=== PATIENT | female | born 1990 | race Caucasian/White ===

== ENCOUNTER 2016-08-02 17:12 | Emergency (ER) | payer OTHER ==
[~2016-08-02] VITALS: Ht 160 cm; Wt 123.8 kg
[~2016-08-02 17:12] MED LIST: BACTRIM 400 MG-1 TAB PO; BACTRIM DS 8001 TA1 PO; BACTROBAN2% TP; CARAFATE1 G1 PO; CIPROFLOXACIN500 MG PO; DICLOFENAC POTA50 MG PO; HYDROCODONE BIT1 T11 PO; IBU800 MG PO; LEVOFLOXACIN500 MG PO; MACROBID100 M1 PO; MOTRIN800 MG PO; Motrin,Rufen800 MG PO; OMEPRAZOLE20 MG PO; PERCOCET 325 MG1 TA6 PO; PRENATAL1 TA1 PO; PYRIDIUM200 M1 PO; TYLENOL325 M2 PO; ZOFRAN4 MG PO
[2016-08-02] MEDS ORDERED: CYCLOBENZAPRINE10 MG PO (19:05)
[2016-08-02] MEDS ORDERED: Motrin,Rufen800 MG PO (19:05)
== END 2016-08-02 19:10 | disposition home or self-care (01) ==
LOC: ED 17:12
DX: S13.9XXA Sprain of joints and ligaments of unspecified parts of neck, initial encounter (principal); F17.200 Nicotine dependence, unspecified, uncomplicated; Z91.018 Allergy to other foods; V43.62XA Car passenger injured in collision with other type car in traffic accident, initial encounter; Y93.89 Activity, other specified; Y92.413 State road as the place of occurrence of the external cause; Y99.8 Other external cause status

== ENCOUNTER 2017-08-14 19:24 | Emergency (ER) | payer OTHER ==
[~2017-08-14] VITALS: Ht 154.9 cm; Wt 112.9 kg
[~2017-08-14 19:24] MED LIST changes: +CYCLOBENZAPRINE10 MG PO
[2017-08-14] MEDS ORDERED: TAGAMET HB200 M1 PO (21:17)
== END 2017-08-14 21:23 | disposition home or self-care (01) ==
LOC: ED 19:24
DX: L50.8 Other urticaria (principal); F17.200 Nicotine dependence, unspecified, uncomplicated; Z98.890 Other specified postprocedural states; Z91.018 Allergy to other foods

== ENCOUNTER 2018-08-11 08:55 | Emergency (ER) | payer OTHER ==
[~2018-08-11] VITALS: Ht 154.9 cm; Wt 117.0 kg
[~2018-08-11 08:55] MED LIST changes: +TAGAMET HB200 M1 PO
[2018-08-11] MEDS ORDERED: VISTARIL25 MG PO (09:20)
[2018-08-11] MEDS ORDERED: PREDNISONE20 M1 PO (09:20)
== END 2018-08-11 09:52 | disposition home or self-care (01) ==
LOC: ED 08:55
DX: L50.8 Other urticaria (principal); E11.9 Type 2 diabetes mellitus without complications; F17.200 Nicotine dependence, unspecified, uncomplicated; Z91.018 Allergy to other foods; Z79.899 Other long term (current) drug therapy

== ENCOUNTER → 2018-12-11 | Outpatient (CLI) | payer OTHER ==
[~2018-12-11] MED LIST changes: +PREDNISONE20 M1 PO; +VISTARIL25 MG PO
[2018-12-11 17:22] LABS: BASO # 0.1 10*3/uL (0.0-0.1); BASO % 0.7 % (0.0-1.0); EOS # 0.2 10*3/uL (0.0-0.4); EOS % 1.7 % (1.0-4.0); HEMOGLOBIN 13.5 g/dl (12.0-16.0); LYMPH # 2.7 10*3/uL (1.3-4.4); LYMPH % 21.4 % (27.0-41.0); MEAN CELL VOLUME 93.4 fl (81.0-99.0); MEAN CORPUSCULAR HGB 30.8 pg (27.0-31.0); MEAN CORPUSCULAR HGB CONC 32.9 g/dl (33.0-37.0); MEAN PLATELET VOLUME 11.8 fl (9.6-12.3); MONO # 0.6 10*3/uL (0.1-1.0); MONO % 4.5 % (3.0-9.0); NEUT # 9.1 10*3/uL (2.3-7.9); NEUT % 71.4 % (47.0-73.0); PLATELET COUNT AUTOMATED 286 10*3/uL (130-400); RED BLOOD COUNT 4.39 10*6/uL (4.10-5.10); RED CELL DISTRI WIDTH 12.9 % (0-14.5); WHITE BLOOD COUNT 12.8 10*3/uL (4.8-10.8)
[2018-12-11 17:36] LABS: ALBUMIN 3.5 gm/dl (3.1-4.5); ALKALINE PHOSPHATASE 87 U/L (45-117); BUN 11 mg/dl (7-24); CHLORIDE 108 mmol/L (98-107); CHOLESTEROL 163 mg/dL (<200); CREATININE 0.73 mg/dL (0.55-1.02); HDL CHOLESTEROL 33 mg/dl (40-60); LDL CHOLESTEROL 79 mg/dL (9-159); SGOT/AST 42 IU/L (3-35); SGPT/ALT 76 U/L (12-78); SODIUM 140 mmol/L (136-145); TOTAL PROTEIN 7.5 gm/dL (6.4-8.2); TRIGLYCERIDES 254 mg/dl (<150); VLDL CHOLESTEROL 51 mg/dL (6-40)
[2018-12-11 17:38] LABS: FREE T4 1.07 ng/dl (0.76-1.46)
[2018-12-11 17:54] LABS: VITAMIN D, 25-HYDROXY 42.8 ng/mL (30-100)
== END | disposition home or self-care (01) ==
LOC: LAB 16:56
PROVIDERS: Internal Medicine
DX: Z13.1 Encounter for screening for diabetes mellitus (principal); Z13.21 Encounter for screening for nutritional disorder; Z13.220 Encounter for screening for lipoid disorders; Z00.00 Encounter for general adult medical examination without abnormal findings; E11.9 Type 2 diabetes mellitus without complications

== ENCOUNTER → 2021-05-10 | Outpatient (CLI) | payer OTHER | END | disposition home or self-care (01) | LOC: US 13:00 | PROVIDERS: ATTEND Nurse Practitioner Women's Health | DX: O09.91 Supervision of high risk pregnancy, unspecified, first trimester (principal); Z3A.11 11 weeks gestation of pregnancy ==

== ENCOUNTER 2021-06-15 19:41 | Emergency (ER) | payer OTHER ==
[~2021-06-15] VITALS: Ht 152.4 cm; Wt 111.1 kg
[2021-06-15] MEDS ORDERED: ASPIRIN FOR CHI81 MG PO (19:58)
[2021-06-15] MEDS ORDERED: INSULIN AS100 UNIT/3 SQ (19:59)
[2021-06-15] MEDS ORDERED: LANTUS SOL100 UNIT/1 SC (19:59)
[2021-06-15 20:19] LABS: BILIRUBIN Negative (Negative); BLOOD 2+ (Negative); CLARITY Cloudy (Clear); COLOR Yellow (Yellow); GLUCOSE Negative (Negative); KETONE 1+ (Negative); LEUKO ESTERASE 2+ (Negative); NITRITE Negative (Negative)
[2021-06-15 20:31] LABS: EPITHELIAL CELLS 16-20; RBC 21-30 rbc/hpf (0-2); WBC 21-30 wbc/hpf (0-5)
[2021-06-15 20:37] LABS: HEMATOCRIT 35.4 % (37.0-47.0); MEAN CELL VOLUME 89.8 fl (81.0-99.0); MEAN CORPUSCULAR HGB 30.2 pg (27.0-31.0); MEAN CORPUSCULAR HGB CONC 33.6 g/dl (33.0-37.0); MEAN PLATELET VOLUME 11.4 fl (9.6-12.3); PLATELET COUNT AUTOMATED 216 10*3/uL (130-400); RED BLOOD COUNT 3.94 10*6/uL (4.10-5.10); RED CELL DISTRI WIDTH 12.2 % (0-14.5); WHITE BLOOD COUNT 17.2 10*3/uL (4.8-10.8)
[2021-06-15 20:38] LABS: MANUAL DIFF REFLEX YES
[2021-06-15 20:53] LABS: ALKALINE PHOSPHATASE 77 U/L (45-117); BUN 6 mg/dl (7-24); CHLORIDE 110 mmol/L (98-107); CREATININE 0.54 mg/dL (0.55-1.02); POTASSIUM 3.6 mmol/L (3.5-5.1); SGOT/AST 20 IU/L (3-35); SODIUM 138 mmol/L (136-145)
[2021-06-15 21:02] LABS: TOTAL CELLS COUNTED 100 #CELLS
[2021-06-15 21:03] LABS: PLATELET SUFFICIENCY NORMAL (NORMAL)
[2021-06-15 21:20] LABS: SGPT/ALT 20 U/L (12-78)
[2021-06-15] MEDS ORDERED: CEPHALEXIN500 M1 PO (22:59)
== END 2021-06-15 23:46 | disposition left against medical advice (07) ==
LOC: ED 19:41
PROVIDERS: Nurse Practitioner Family
DX: O23.92 Unspecified genitourinary tract infection in pregnancy, second trimester (principal); E86.0 Dehydration; Z3A.16 16 weeks gestation of pregnancy

== ENCOUNTER 2021-10-17 14:23 | Emergency (ER) | payer OTHER ==
[~2021-10-17] VITALS: Ht 162.5 cm; Wt 127.0 kg
[~2021-10-17 14:23] MED LIST changes: +ASPIRIN FOR CHI81 MG PO; +CEPHALEXIN500 M1 PO; +INSULIN AS100 UNIT/3 SQ; +LANTUS SOL100 UNIT/1 SC
[2021-10-17] MEDS ORDERED: AMOXICILLIN875 MG PO (15:25)
== END 2021-10-17 16:15 | disposition home or self-care (01) ==
LOC: ED 14:23
DX: O26.893 Other specified pregnancy related conditions, third trimester (principal); Z3A.34 34 weeks gestation of pregnancy; Z79.82 Long term (current) use of aspirin; Z90.89 Acquired absence of other organs; Z98.890 Other specified postprocedural states

== ENCOUNTER 2023-12-13 18:33 | Emergency (ER) | payer OTHER ==
[~2023-12-13] VITALS: Wt 104.8 kg
[~2023-12-13 18:33] MED LIST changes: +AMOXICILLIN875 MG PO
[2023-12-13] MEDS ORDERED: PENICILLIN VK500 MG PO (19:09)
[2023-12-13] MEDS ORDERED: PENICILLIN V POTASSIUM 500 MG TAB PO ONE (19:10)
[2023-12-13] MEDS ORDERED: Acetaminophen/Oxycodone 5 MG/325 MG TABLET PO ONE (19:10)
== END 2023-12-13 19:17 | disposition home or self-care (01) ==
LOC: ED 18:33
DX: K08.89 Other specified disorders of teeth and supporting structures (principal); Z91.018 Allergy to other foods; Z90.89 Acquired absence of other organs; Z98.890 Other specified postprocedural states

== ENCOUNTER 2024-01-21 19:41 | Emergency (ER) | payer OTHER ==
[~2024-01-21] VITALS: Ht 152.4 cm; Wt 102.5 kg
[~2024-01-21 19:41] MED LIST changes: +PENICILLIN VK500 MG PO
[2024-01-21] MEDS ORDERED: TRULICITY1.5 MG/0.5 SC (20:16)
[2024-01-21] MEDS ORDERED: Motrin,Rufen800 MG PO (21:01)
[2024-01-21] MEDS ORDERED: CLINDAMYCIN HC300 MG PO (21:01)
[2024-01-21] MEDS ORDERED: BENZOCAINE 20% 11.9 GM GEL T STA (21:02)
[2024-01-21] MEDS ORDERED: Lidocaine Hydrochloride 15 ML UDC PO STA (21:02)
[2024-01-21] MEDS ORDERED: Acetaminophen/Oxycodone 5 MG/325 MG TABLET PO ONE (21:05)
[2024-01-21] MEDS ORDERED: CLINDAMYCIN HCL 300 MG CAPSULE PO ONE (21:05)
== END 2024-01-21 21:26 | disposition home or self-care (01) ==
LOC: ED 19:41
DX: S02.5XXA Fracture of tooth (traumatic), initial encounter for closed fracture (principal); K04.7 Periapical abscess without sinus; Z91.018 Allergy to other foods; Z90.89 Acquired absence of other organs; Z98.890 Other specified postprocedural states; X58.XXXA Exposure to other specified factors, initial encounter; Y93.89 Activity, other specified; Y92.009 Unspecified place in unspecified non-institutional (private) residence as the place of occurrence of the external cause; Y99.8 Other external cause status

== ENCOUNTER 2024-05-16 17:45 | Emergency (ER) | payer OTHER ==
[~2024-05-16] VITALS: Ht 160 cm; Wt 106.1 kg
[~2024-05-16 17:45] MED LIST changes: +CLINDAMYCIN HC300 MG PO; +TRULICITY1.5 MG/0.5 SC
[2024-05-16] MEDS ORDERED: LANTUS SOL100 UNIT/1 SC (17:56)
[2024-05-16] MEDS ORDERED: methylPREDNISolone sod succ 125 MG VIAL IM ONE (18:10)
[2024-05-16] MEDS ORDERED: Acetaminophen/Hydrocodone 5 MG/325 MG TABLET PO ONE (18:10)
[2024-05-16] MEDS ORDERED: METHOCARBAMOL 500 MG TAB PO ONE (18:10)
[2024-05-16] MEDS ORDERED: METHOCARBAMOL500 M1 PO (18:30)
[2024-05-16] MEDS ORDERED: NAPROSYN500 MG PO (18:30)
[2024-05-16] MEDS ORDERED: PREDNISONE50 MG PO (18:30)
== END 2024-05-16 18:46 | disposition home or self-care (01) ==
LOC: ED 17:45
DX: S39.012A Strain of muscle, fascia and tendon of lower back, initial encounter (principal); E11.9 Type 2 diabetes mellitus without complications; M79.604 Pain in right leg; Z91.018 Allergy to other foods; Z90.89 Acquired absence of other organs; Z98.890 Other specified postprocedural states; X50.0XXA Overexertion from strenuous movement or load, initial encounter; Y93.89 Activity, other specified; Y92.009 Unspecified place in unspecified non-institutional (private) residence as the place of occurrence of the external cause; Y99.8 Other external cause status

== ENCOUNTER 2024-06-11 18:39 | Emergency (ER) | payer OTHER ==
[~2024-06-11] VITALS: Ht 157.4 cm; Wt 106.6 kg
[~2024-06-11 18:39] MED LIST changes: +METHOCARBAMOL500 M1 PO; +NAPROSYN500 MG PO; +PREDNISONE50 MG PO
[2024-06-11] MEDS ORDERED: methylPREDNISolone sod succ 125 MG VIAL IM ONE (19:25)
[2024-06-11] MEDS ORDERED: BENZONATATE100 M1 PO (20:28)
[2024-06-11] MEDS ORDERED: MEDROL DOSEPAK4 MG PO (20:40)
== END 2024-06-11 20:47 | disposition home or self-care (01) ==
LOC: ED 18:39
DX: J40 Bronchitis, not specified as acute or chronic (principal); E11.9 Type 2 diabetes mellitus without complications; Z91.018 Allergy to other foods; Z79.899 Other long term (current) drug therapy; Z79.4 Long term (current) use of insulin; Z98.890 Other specified postprocedural states

== ENCOUNTER 2025-03-12 18:01 | Emergency (ER) | payer OTHER ==
[~2025-03-12] VITALS: Wt 108.4 kg
[~2025-03-12 18:01] MED LIST changes: +BENZONATATE100 M1 PO; +MEDROL DOSEPAK4 MG PO
[2025-03-12 18:31] LABS: BILIRUBIN Negative (Negative); BLOOD 3+ (Negative); CLARITY Cloudy (Clear); COLOR Yellow (Yellow); KETONE Trace (Negative); LEUKO ESTERASE 3+ (Negative); NITRITE Positive (Negative); PH 5.5 (4.5-8.0); SPECIFIC GRAVITY 1.025 (1.001-1.030); UROBILINOGEN 1.0 E.U./dl (0.0-1.0)
[2025-03-12 18:37] LABS: BACTERIA 2+; MUCOUS 2+; WBC TNTC wbc/hpf (0-5)
[2025-03-12] MEDS ORDERED: Phenazopyridine Hydrochlorid2 100 MG TAB PO ONE (18:45)
[2025-03-12] MEDS ORDERED: LEVOFLOXACIN 750 MG TAB PO ONE (18:45)
[2025-03-12] MEDS ORDERED: LEVOFLOXACIN750 M2 PO (18:47)
[2025-03-12] MEDS ORDERED: PYRIDIUM200 M1 PO (18:47)
== END 2025-03-12 18:58 | disposition home or self-care (01) ==
LOC: ED 18:01
PROVIDERS: Emergency Medicine
DX: N39.0 Urinary tract infection, site not specified (principal); Z98.890 Other specified postprocedural states; Z91.018 Allergy to other foods

== ENCOUNTER 2025-03-21 16:32 | Emergency (ER) | payer OTHER ==
[~2025-03-21] VITALS: Ht 152.4 cm; Wt 108.4 kg
[~2025-03-21 16:32] MED LIST changes: +LEVOFLOXACIN750 M2 PO
[2025-03-21] MEDS ORDERED: CETIRIZINE10 MG PO (18:04)
[2025-03-21] MEDS ORDERED: Dexamethasone Sodium Phospha 10 MG/1 ML VIAL IM ONE (18:05)
== END 2025-03-21 18:26 | disposition home or self-care (01) ==
LOC: ED 16:32
DX: T78.40XA Allergy, unspecified, initial encounter (principal); Z87.440 Personal history of urinary (tract) infections; Z91.018 Allergy to other foods; X58.XXXA Exposure to other specified factors, initial encounter